=== PATIENT | female | born 1985 | race Two or more races ===

== ENCOUNTER 2022-08-20 12:56 | Emergency (ER) | payer MEDICAID ==
[~2022-08-20] VITALS: Ht 157.5 cm; Wt 92.4 kg
[2022-08-20 13:20] VITALS: BP 126/83
--- NOTE | 2022-08-20 13:50 | NUR ---
certified court/medical interpreter used #[id number]
[2022-08-20] MEDS ORDERED: ondansetron 4mg rapidly disintigrating tab PO ONE (14:35)
[2022-08-20] MEDS ORDERED: acetaminophen 325mg tablet PO ONE (16:15)
[2022-08-20] MEDS ORDERED: ONDA4TAB12 PO (16:57)
== END 2022-08-20 17:31 | disposition home or self-care (01) ==
LOC: ER 12:57
DX: A08.4 Viral intestinal infection, unspecified (principal); Z20.822 Contact with and (suspected) exposure to COVID-19; H61.23 Impacted cerumen, bilateral; R50.9 Fever, unspecified; R09.89 Other specified symptoms and signs involving the circulatory and respiratory systems; Z90.49 Acquired absence of other specified parts of digestive tract; Z79.899 Other long term (current) drug therapy
CPT/HCPCS: 36415; 99283; C9803

== ENCOUNTER 2023-02-02 12:47 | Emergency (ER) | payer MEDICAID ==
[~2023-02-02] VITALS: Ht 172.7 cm; Wt 120.0 kg
[~2023-02-02 12:47] MED LIST: ONDA4TAB12 PO
[2023-02-02 13:00] VITALS: PULSE 77; RESP 18; TEMP 98.1; O2SAT 98
[2023-02-02] MEDS ORDERED: CYCL-1 PO (14:58)
[2023-02-02] MEDS ORDERED: IBUP-1984 PO (14:58)
[2023-02-02] MEDS ORDERED: AMOX-580 PO (14:58)
== END 2023-02-02 15:19 | disposition home or self-care (01) ==
LOC: ER 12:47
DX: S46.911A Strain of unspecified muscle, fascia and tendon at shoulder and upper arm level, right arm, initial encounter (principal); G44.209 Tension-type headache, unspecified, not intractable; J32.9 Chronic sinusitis, unspecified; Z79.2 Long term (current) use of antibiotics; Z79.1 Long term (current) use of non-steroidal anti-inflammatories (NSAID); Z79.899 Other long term (current) drug therapy; Z90.49 Acquired absence of other specified parts of digestive tract; X58.XXXA Exposure to other specified factors, initial encounter; Y93.89 Activity, other specified; Y92.89 Other specified places as the place of occurrence of the external cause; Y99.8 Other external cause status
CPT/HCPCS: 99283

== ENCOUNTER 2023-12-23 16:00 | Emergency (ER) | payer MEDICAID ==
[~2023-12-23] VITALS: Ht 157.5 cm; Wt 94.8 kg
[~2023-12-23 16:00] MED LIST changes: +CYCL-1 PO; +ONDA-243 PO; -ONDA4TAB12 PO
[2023-12-23 16:25] VITALS: PULSE 86
[2023-12-23] MEDS: LIDOcaine 1% W/epiNEPHrine 1:200,000 10ml vial IJ ONE (16:48)
[2023-12-23] MEDS: LIDOcaine 1% W/epiNEPHrine 1:100,000 20ml vial IJ ONE (17:15)
[2023-12-23] MEDS ORDERED: METR-159 PO (17:22)
[2023-12-23] MEDS ORDERED: SULF1TAB49 PO (17:22)
[2023-12-23 18:13] VITALS: BP 136/85; TEMP 98.7; O2SAT 100
[2023-12-23] MEDS ORDERED: HYDR-3965 PO (18:17)
[2023-12-23 18:21] VITALS: RESP 18
[2023-12-23] MEDS: HYDROcodone/acetaminophen 10/325mg tab PO ONE (18:21)
== END 2023-12-23 18:35 | disposition home or self-care (01) ==
LOC: ER 16:01
DX: N76.4 Abscess of vulva (principal); Z79.899 Other long term (current) drug therapy; Z79.2 Long term (current) use of antibiotics; Z90.49 Acquired absence of other specified parts of digestive tract
CPT/HCPCS: 56405; 99284; A6266; A6449

== ENCOUNTER 2023-12-25 08:07 | Emergency (ER) | payer MEDICAID ==
[~2023-12-25] VITALS: Ht 162.6 cm; Wt 83.3 kg
[~2023-12-25 08:07] MED LIST changes: +HYDR-3965 PO; +METR-159 PO; +SULF1TAB49 PO
[2023-12-25] MEDS: ondansetron 4mg rapidly disintigrating tab PO ONE (09:06)
[2023-12-25] MEDS: oxyCODONE IR 5mg (immed. release) tablet PO ONE (09:14)
[2023-12-25] MEDS: LIDOcaine 1% W/epiNEPHrine 1:100,000 20ml vial SQ ONE (09:14)
[2023-12-25] MEDS: CefTRIAXone 1000mg IM Kit (w/lidocaine diluent) IM ONE (09:33)
[2023-12-25 09:42] LABS: BASOPHILS % (AUTO) 0.2 % (0-1); EOSINOPHILS # (AUTO) 0.1 X10'3 (0-0.9); EOSINOPHILS % (AUTO) 0.5 % (0-6); HEMATOCRIT 40.5 % (35.0-45.0); HEMOGLOBIN 13.6 g/dl (12.0-16.0); LYMPHOCYTES # (AUTO) 2.7 X10'3 (1.1-4.8); LYMPHOCYTES % (AUTO) 18.4 % (21-51); MEAN CORPUSCULAR HEMOGLOBIN 30.4 PG (27.0-31.0); MEAN CORPUSCULAR HGB CONC 33.5 g/dL (33.0-36.5); MEAN CORPUSCULAR VOLUME 90.8 FL (78-98); MEAN PLATELET VOLUME 7.9 FL (7.4-10.4); MONOCYTES # (AUTO) 0.8 X10'3 (0-0.9); MONOCYTES % (AUTO) 5.5 % (2-12); NEUTROPHILS % (AUTO) 75.4 % (42-75); PLATELET COUNT 240 X10'3 (140-440); RED BLOOD COUNT 4.46 X10'6 (4.20-5.60); RED CELL DISTRIBUTION WIDTH 13.5 % (11.5-14.5); WHITE BLOOD COUNT 14.6 X10'3 (4.5-11.0)
[2023-12-25 09:58] LABS: ALBUMIN 3.3 G/DL (3.4-5.0); ANION GAP 9 (8-16); BLOOD UREA NITROGEN 10 MG/DL (7-18); BUN/CREATININE RATIO 12.3 (10.0-20.0); C-REACTIVE PROTEIN 3.12 MG/DL (0.0-0.5); CALCIUM 8.8 MG/DL (8.5-10.1); CHLORIDE 102 MMOL/L (99-107); CREATININE 0.81 MG/DL (0.40-0.90); GLUCOSE 93 MG/DL (70-104); POTASSIUM 3.8 MMOL/L (3.5-5.1); SODIUM 138 MMOL/L (135-145); TOTAL CARBON DIOXIDE 27.4 MMOL/L (24-32); eCRCL 83 ML/MIN; eGFR 80 ML/MIN
[2023-12-25] MEDS ORDERED: ONDA-245 PO (10:10)
[2023-12-25 10:26] VITALS: BP 118/79; PULSE 100; RESP 16; TEMP 99; O2SAT 98
== END 2023-12-25 10:29 | disposition home or self-care (01) ==
LOC: ER 08:07
DX: N76.4 Abscess of vulva (principal); Z79.899 Other long term (current) drug therapy; Z79.2 Long term (current) use of antibiotics; Z90.49 Acquired absence of other specified parts of digestive tract
CPT/HCPCS: 36415; 56405; 80048; 84145; 85025; 86140; 96372; 99284; A6266; J0696

== ENCOUNTER 2024-02-07 18:20 | Emergency (ER) | payer MEDICAID ==
[~2024-02-07] VITALS: Ht 162.6 cm; Wt 94.0 kg
[~2024-02-07 18:20] MED LIST changes: -HYDR-3965 PO; -METR-159 PO; +ONDA-245 PO; -SULF1TAB49 PO
[2024-02-07] MEDS ORDERED: PRED20TA PO (19:18)
[2024-02-07] MEDS ORDERED: DIPH25CA83 PO (19:18)
[2024-02-07] MEDS: dexamethasone sod phosphate 10mg/ml inj PO STA (19:45)
[2024-02-07] MEDS: diphenhydrAMINE 50 mg/ml inj IV ONE (19:45)
[2024-02-07] MEDS: famotidine 20mg tablet PO ONE (19:45)
[2024-02-07 19:49] VITALS: BP 126/83; PULSE 82; RESP 18; TEMP 98.6; O2SAT 99
== END 2024-02-07 19:51 | disposition home or self-care (01) ==
LOC: ER 18:21
DX: R21 Rash and other nonspecific skin eruption (principal); L50.0 Allergic urticaria; Z79.899 Other long term (current) drug therapy; Z90.49 Acquired absence of other specified parts of digestive tract
CPT/HCPCS: 96374; 99283; J1100; J1200

== ENCOUNTER 2024-03-07 10:16 | Emergency (ER) | payer MEDICAID ==
[~2024-03-07] VITALS: Ht 157.5 cm; Wt 94.5 kg
[~2024-03-07 10:16] MED LIST changes: +DIPH25CA83 PO
[2024-03-07 10:59] LABS: BASOPHILS % (AUTO) 0.1 % (0-1); EOSINOPHILS # (AUTO) 0.1 X10'3 (0-0.9); EOSINOPHILS % (AUTO) 0.5 % (0-6); HEMATOCRIT 43.1 % (35.0-45.0); HEMOGLOBIN 14.7 g/dl (12.0-16.0); LYMPHOCYTES # (AUTO) 1.4 X10'3 (1.1-4.8); LYMPHOCYTES % (AUTO) 10.9 % (21-51); MEAN CORPUSCULAR HEMOGLOBIN 30.4 PG (27.0-31.0); MEAN CORPUSCULAR VOLUME 89.4 FL (78-98); MEAN PLATELET VOLUME 7.5 FL (7.4-10.4); MONOCYTES # (AUTO) 0.4 X10'3 (0-0.9); NEUTROPHILS # (AUTO) 10.8 X10'3 (1.8-7.7); NEUTROPHILS % (AUTO) 85.5 % (42-75); PLATELET COUNT 270 X10'3 (140-440); RED BLOOD COUNT 4.83 X10'6 (4.20-5.60); RED CELL DISTRIBUTION WIDTH 13.3 % (11.5-14.5); WHITE BLOOD COUNT 12.6 X10'3 (4.5-11.0)
[2024-03-07 11:10] LABS: APTT 27 SECONDS (22-32); D-DIMER 0.46 MG/L FEU (0-0.50); INR 1.1 INR; PROTHROMBIN TIME 11.2 SECONDS (9.0-12.0)
[2024-03-07 11:17] LABS: ALBUMIN 3.7 G/DL (3.4-5.0); ANION GAP 8 (8-16); BLOOD UREA NITROGEN 13 MG/DL (7-18); CALCIUM 8.4 MG/DL (8.5-10.1); CHLORIDE 105 MMOL/L (99-107); CREATININE 0.59 MG/DL (0.40-0.90); GLUCOSE 99 MG/DL (70-104); POTASSIUM 3.5 MMOL/L (3.5-5.1); PRO BRAIN NATRIURETIC PEPTIDE < 30 PG/ML (0-125); SODIUM 139 MMOL/L (135-145); TOTAL CARBON DIOXIDE 26.4 MMOL/L (24-32); eCRCL 104 ML/MIN; eGFR > 90 ML/MIN
[2024-03-07] MEDS: aspirin 81mg tab.chew PO ONE (11:53)
[2024-03-07] MEDS: morphine 4 MG/ML inj SYRINge IV ONE (12:03)
[2024-03-07] MEDS: ketorolac trometh 15mg/ml vial 15 MG/ML ML IV ONE (12:04)
[2024-03-07 12:09] LABS: C-REACTIVE PROTEIN 2.64 MG/DL (0.0-0.5); LIPASE 24 U/L (16-77)
[2024-03-07 14:33] VITALS: TEMP 98.9
[2024-03-07] MEDS ORDERED: ONDA-243 PO (18:28)
[2024-03-07] MEDS: normal saline 1000ML IV soln IVB ONE (18:40)
[2024-03-07] MEDS: ondansetron/PF 4mg/2ml inj IV ONE (18:48)
[2024-03-07] MEDS: metoclopramide 5 mg/ml inj IV ONE (18:50)
[2024-03-07] MEDS: morphine 2 MG/ML inj. syringe IV PRN (18:51)
[2024-03-07 19:17] VITALS: BP 99/68; PULSE 65; RESP 15; O2SAT 100
== END 2024-03-07 19:16 | disposition home or self-care (01) ==
LOC: ER 10:17
DX: A08.4 Viral intestinal infection, unspecified (principal); M79.604 Pain in right leg; Z79.899 Other long term (current) drug therapy; Z90.49 Acquired absence of other specified parts of digestive tract; Z20.822 Contact with and (suspected) exposure to COVID-19
CPT/HCPCS: 36415; 71045; 80048; 83690; 83880; 84484; 85025; 85379; 85610; 85730; 86140; 87502; 87503; 87811; 93005; 93970; 96374; 96375; 96376; 99285; J1885; J2270; J2405; J2765; J7030

== ENCOUNTER 2024-07-22 20:53 | Emergency (ER) | payer MEDICAID ==
[~2024-07-22] VITALS: Ht 165.1 cm; Wt 81.6 kg
[2024-07-22] MEDS: epiNEPHrine 1 mg/ml inj IM STA (21:23)
[2024-07-22] MEDS: diphenhydrAMINE 50 mg/ml inj IV ONE (21:34)
[2024-07-22] MEDS: dexamethasone sod phosphate 10mg/ml inj IV ONE (21:34)
[2024-07-22] MEDS: famotidine/PF 10 mg/ml inj IV ONE (21:34)
[2024-07-23] MEDS ORDERED: HYDR-3686 PO (00:01)
[2024-07-23] MEDS ORDERED: PRED20TA PO (00:01)
[2024-07-23] MEDS ORDERED: EPIN0.3P3 IM (00:01)
[2024-07-23 05:07] VITALS: BP 132/80; PULSE 64; RESP 16; TEMP 98.4; O2SAT 98
== END 2024-07-23 06:24 | disposition home or self-care (01) ==
LOC: ER 20:53
DX: T78.3XXA Angioneurotic edema, initial encounter (principal); Z90.49 Acquired absence of other specified parts of digestive tract; Z79.899 Other long term (current) drug therapy
CPT/HCPCS: 96372; 96374; 96375; 99285; J0171; J1100; J1200; J3490

== ENCOUNTER 2024-12-01 16:10 | Emergency (ER) | payer MEDICAID ==
[~2024-12-01] VITALS: Ht 157.5 cm; Wt 75.2 kg
[~2024-12-01 16:10] MED LIST changes: +EPIN0.3P3 IM
[2024-12-01 16:16] VITALS: BP 126/87; PULSE 97; TEMP 98.3; O2SAT 98
[2024-12-01] MEDS ORDERED: CYCL-394 PO (16:45)
--- NOTE | 2024-12-01 16:46 | Physician Documentation ---
History of Present Illness ~ Chief Complaint: Back Pain Stated Complaint: BACK PAIN Time Seen by MD: 16:30 Primary Medical Doctor: [facility] HPI 39-year-old female presents to the ED with a ongoing concerns over lumbar pain. That has this has been going on for years. She denies any numbness tingling or any of the red flag symptoms. States you can not take ibuprofen because she is allergic to it in his happened anaphylactoid response. denies any acute injury. Medication Reconciliation Allergies: Coded Allergies: ibuprofen (Verified Allergy, Unknown, anaphylaxis, 12/01/24) Scheduled Cyclobenzaprine HCl (Cyclobenzaprine HCl), 1 TAB PO Q8H Cyclobenzaprine* (Cyclobenzaprine*), 1 TAB PO Q8H Diphenhydramine Hcl (Benadryl), 2 CAP PO HS Epinephrine (Epipen 2-Rick), 1 SYR IM ONCE ONDANSETRON ODT 4mg tablet (Ondansetron Odt), 1 TABLET PO Q6H Ondansetron 8mg ODT (Ondansetron Odt), 1 TAB PO Q6H Scheduled PRN ONDANSETRON ODT 4mg tablet (Ondansetron Odt), 1 TAB PO BID PRN for nausea/vomiting Past Medical History Past Medical History: No Pertinent History Past Surgical History: cholecystectomy Lives with: Family Lives In: Home Review of Systems All Other Systems at this time: Reviewed and Negative ROS As stated above in the HPI, otherwise all systems are reviewed and negative. Physical Exam Physical Exam Vital Signs: Temperature: 98.3, Source: Temporal, Heart Rate: 97, Respiratory Rate: 17, BP: 126/87, Pulse Oximetry: 98, Weight: 75.200 Physical Exam General: Alert, no apparent distress. HEENT: PERRL, EOMI, no injection, moist mucous membranes. back: Tender to palpation in the lumbar region Extremities: Normal range of motion, no deformity. Neurologic: Oriented x4. Psychiatric: Normal mood and affect. Skin: Normal color, warm and dry. No edema, no ecchymosis. Progress Results/Orders Results/Orders Completed Orders - JESSE PATEL NP Cyclobenzaprine Tablet (Flexeril Tablet) (12/01/24 16:35) Hydrocodone/Apap 10/325 (Blackey 10/325mg (12/01/24 16:35) Medications Received in ER Medications (Trade) Dose Ordered Sig/Jay Route PRN Reason Start Time Stop Time Status Last Admin Dose Admin (Flexeril tablet) 10 mg ONCE ONCE PO 12/01/24 16:35 12/01/24 16:36 DC 12/01/24 16:57 10 MG (Blackey 10/325mg tab) 1 tab ONCE ONCE PO 12/01/24 16:35 12/01/24 16:36 DC 12/01/24 16:58 1 TAB Vital Signs 12/01/24 12/01/24 16:16 16:58 Temp 98.3 Pulse 97 Resp 17 16 B/P (MAP) 126/87 Pulse Ox 98 Medical Decision Making Findings The patient for acute pain however I did talk to her about obtaining a referral for to get him physical therapy for her ongoing symptoms.. She is getting a ride home. Differential Dx:Considerations: Include: AAA, Aortic dissection, , Appendicitis, Bowel obstruction, Cholelithiasis, Cholangitis, DJD, Ectopic , Fracture, Hepatitis, HNP, Musculoskeletal pain, Pancreatitis, Pyelonephritis, Strain, Urinary obstruction, Urolithiasis, Ovarian torsion, Other Departure Impression: Primary Impression: Back problem Condition: Stable Discharge Instructions: Chronic Back Pain Referrals: NO PRIMARY CARE PROVIDER (PCP) Prescriptions Cyclobenzaprine HCl (Cyclobenzaprine HCl) 10 Mg Tablet 1 TAB PO Q8H for muscle spasms for 10 Days, #30 TAB Prov: JESSE PATEL NP 12/01/24 Signature Scribe Signature: t Attestation: Scribed for Jesse Patel Detonator Maker by Jesse Valerio NP . 12/01/24 22:33 JESSE PATEL NP Dec 01, 2024 16:46
[2024-12-01 16:58] VITALS: RESP 16
[2024-12-01] MEDS: HYDROcodone/acetaminophen 10/325mg tab PO ONE (16:58)
== END 2024-12-01 17:03 | disposition home or self-care (01) ==
LOC: ER 16:11
DX: M54.50 Low back pain, unspecified (principal); Z90.49 Acquired absence of other specified parts of digestive tract; Z88.6 Allergy status to analgesic agent; Z79.899 Other long term (current) drug therapy
CPT/HCPCS: 99283